=== PATIENT | male | born 1955 | race Caucasian/White ===

== ENCOUNTER 2018-06-11 17:07 | Emergency (ER) | payer OTHER ==
[~2018-06-11] VITALS: Ht 182.9 cm; Wt 105.2 kg
[~2018-06-11 17:07] MED LIST: ATORVASTATIN CA10 MG PO; GLIMEPIRIDE2 MG PO; METFORMIN HCL500 MG PO; SAW PALMETTO160 MG PO; SIMVASTATIN20 MG PO
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
--- OUTSIDE RECORDS SUMMARY | 2018-06-11 17:10 | XMS REPORT ---
Author Author [facility] Address Unknown Phone Unavailable Care Team Providers Care Reed Polisher Name Role Phone Alka MERCADO Unavailable Unavailable Problems This patient has no known problems. Allergies, Adverse Reactions, Alerts This patient has no known allergies or adverse reactions. Medications This patient has no known medications. Results Test Description Test Time Test Comments Text Results Atomic Results Result Comments CHEST SINGLE (PORTABLE) [place] [address] Patient Name: ENID ESCOBEDO MR #: [id number] : 1955 Age/Sex: 61/M Req #: [id number] Adm Physician: Ordered by: LYNNE MERCADO MD Report #: [id number] Location: ER Room/Bed: Procedure: [id number] DX/CHEST SINGLE (PORTABLE) Exam Date: 06/01/17 Exam Time: 1657 REPORT STATUS: Signed PROCEDURE: A single AP view of the chest. COMPARISON: None. INDICATIONS: CHEST PAIN, HEART FLUTTERS FINDINGS: Lines/tubes: None. Lungs: The lungs are well inflated and clear. There is no evidence of pneumonia or pulmonary edema. Pleura: There is no pleural effusion or pneumothorax. Heart and mediastinum: The heart and the mediastinum are unremarkable. Bones: No acute bony abnormality. Degenerative changes of the thoracic spine. IMPRESSION: No acute radiographic abnormality. Dictated by: Masoud Malin M.D. on 06/01/2017 at 17:17 Electronically approved by: Masoud Malin M.D. on 06/01/2017 at 17:17 Dictated By: MASOUD MALIN MD 16 Transcribed By: CASEY on 06/01/171716 COPY TO: LYNNE MERCADO MD
[2018-06-11] MEDS ORDERED: LIDOCAINE HCL 1% LOCAL INJ 20 ML VIAL INJ ONE (21:15)
[2018-06-11] MEDS ORDERED: DOXYCYCLINE HYCLATE TABLET 100 MG TAB PO ONE (22:00)
[2018-06-11 22:04] VITALS: BP 150/75
== END 2018-06-11 22:06 | disposition home or self-care (01) ==
LOC: ER 17:07
DX: L02.212 Cutaneous abscess of back [any part, except buttock and flank] (principal)
CPT/HCPCS: 10061; 99283; J2001

== ENCOUNTER → 2019-12-22 | Day surgery (SDC) | payer MEDICARE, OTHER ==
[2019-12-19 14:55] LABS: BASOPHILS # (AUTO) 0.1 (0.0-0.1); BASOPHILS % 0.6 % (0.0-1.0); EOSINOPHILS % 0.5 % (0.0-6.0); HEMATOCRIT 37.1 % (38.2-49.6); HEMOGLOBIN 12.7 g/dL (14.0-18.0); LYMPHOCYTES # (AUTO) 2.2 (1.0-3.2); LYMPHOCYTES % 27.9 % (18.0-39.1); MEAN CORPUSCULAR HEMOGLOBIN 28.9 pg (28-32); MEAN CORPUSCULAR HGB CONC 34.2 g/dL (31-35); MEAN CORPUSCULAR VOLUME 84.3 fL (81-99); MONOCYTES # (AUTO) 0.5 (0.2-0.8); MONOCYTES % 6.5 % (4.4-11.3); NEUTROPHILS # (AUTO) 5.1 (2.1-6.9); NEUTROPHILS % 63.9 % (38.7-80.0); PLATELET COUNT 221 x10e3/uL (140-360); RED CELL DISTRIBUTION WIDTH 12.5 % (11.7-14.4)
[~2019-12-22] MED LIST changes: +AMLODIPINE BESY10 MG PO; +CENTRUM SILVER1 EAC3 PO; +CRESTOR10 MG PO; +ESIDRIX25 MG PO; +LISINOPRIL10 MG PO; +MIDAZOLAM HCL 2 MG/2 ML VIAL ONE; +PROPOFOL IV EMULSION 10 MG/ML 20 ML VIAL ONE; +TRADJENTA5 MG PO
[2019-12-22 09:05] VITALS: BP 110/59
--- OUTSIDE RECORDS SUMMARY | 2019-12-22 10:33 | XMS REPORT ---
Author Author [facility] t Organization [facility] Address [facility] [place] [address] Phone Unavailable Care Team Providers Care Skin Diving Teacher Name Role Phone Asked, Pcp No PCP Unavailable Alka MERCADO Unavailable Problems This patient has no known problems. Allergies, Adverse Reactions, Alerts This patient has no known allergies or adverse reactions. Social History Social Habit Start Date Stop Date Quantity Comments Source Sex Assigned At [place] [facility] [place] Smoking Status Start Date Stop Date Source Former smoker 2017-08-18 00:00:00 2017-08-18 00:00:00 [place] Medications Ordered Medication Name Filled Medication Name Start Date Stop Da te Current Medication? Ordering Clinician Indication Dosage Frequency Signature (SIG) Comments Components Source metFORMIN (GLUCOPHAGE) 500 mg tablet 2017-08-18 23:19:10 Ye s 500mg Q.5D Take 500 mg by mouth 2 (two) times a day with meals. [place] glipiZIDE (GLUCOTROL) 10 MG tablet 2017-08-18 23:19:10 Yes 10mg Q.5D Take 10 mg by mouth 2 (two) times a day before meals. [place] Immunizations Ordered Immunization Name Filled Immunization Name Date Status Comments Source Tdap 2017-08-18 00:00:00 Completed [place] Procedures This patient has no known procedures. Plan of Care Planned Activity Planned Date Details Comments Source Future Scheduled Test 2020-03-03 00:00:00 INFLUENZA VACCINE [code = INFLUENZA VACCINE] [facility] Future Scheduled Test 2019-11-14 00:00:00 65+ PNEUMOCOCCAL V ACCINE (1 of 2 - PCV13) [code = 65+ PNEUMOCOCCAL VACCINE (1 of 2 - PCV13)] [facility] Future Scheduled Test 2004 00:00:00 COLONOSCOPY SCREEN ING [code = COLONOSCOPY SCREENING] [facility] Future Scheduled Test 2004 00:00:00 SHINGLES VACCINES (#1) [code = SHINGLES VACCINES (#1)] [place] Results Test Description Test Time Test Comments Results Result Comments Source CHEST SINGLE (PORTABLE) [place] [address] Patient Name: GUILLERMO TEE MR #: [id number] : 1955 Age/Sex: 61/M Req #: [id number] Adm Physician: Ordered by: LYNNE MERCADO MD Report #: [id number] Location: ER Room/Bed: Procedure: [id number] DX/CHEST SINGLE (PORTABLE) Exam Date: 06/01/17 Exam [...]
--- OUTSIDE RECORDS SUMMARY | 2019-12-22 10:33 | XMS REPORT | Clinical Summary ---
Author Author [facility] Address Unknown Phone Unavailable Care Team Providers Care Fire Fighting Equipment Specialist Name Role Phone Asked, No Pcp PCP Unavailable Allergies No Known Allergies Medications End Date Status Medication Sig Dispensed Refills Start Date Active metFORMIN (GLUCOPHAGE) Take 500 mg 0 500 mg tablet by mouth 2 (two) times a day with meals. Active glipiZIDE (GLUCOTROL) 10 Take 10 mg by 0 MG tablet mouth 2 (two) times a day before meals. Active Problems Not on file Immunizations Name Administration Dates Next Due Tdap 08/18/2017 Social History Date Tobacco Use Types Packs/Day Years Used Former Smoker Smokeless Tobacco: Never Used Sex Assigned at Date Recorded Not on file Industry Job Start Date Occupation Not on file Not on file Not on file Travel End Travel History Travel Start No recent travel history available. Last Filed Vital Signs Not on file Plan of Treatment Health Maintenance Due Date Last Done Comments COLONOSCOPY SCREENING 2004 SHINGLES VACCINES (#1) 2004 65+ PNEUMOCOCCAL VACCINE 11/14/2019 (1 of 2 - PCV13) INFLUENZA VACCINE 03/03/2020 Results Not on fileafter 12/21/2018 Insurance Type Payer Benefit Subscriber ID Effective Phone Address Plan / Dates Group Commercial COMMERCIAL MISC MISC xxxxxxxxxxxxxxx 2016-P COMMERCIAL resent Advance Directives For more information, please contact: [phone] Patient Licensed Optician Explanation Type Date Recorded Advance Directives, 08/18/2017 7:22 PM Living Will and Medical Power of Stave Machine Tender
== END | disposition home or self-care (01) ==
LOC: OR 06:02
PROVIDERS: ATTEND Internal Medicine Gastroenterology
DX: Z12.11 Encounter for screening for malignant neoplasm of colon (principal); K64.8 Other hemorrhoids; E11.9 Type 2 diabetes mellitus without complications; I10 Essential (primary) hypertension; Z01.810 Encounter for preprocedural cardiovascular examination; Z01.812 Encounter for preprocedural laboratory examination; Z11.59 Encounter for screening for other viral diseases; Z79.84 Long term (current) use of oral hypoglycemic drugs; Z87.891 Personal history of nicotine dependence
CPT/HCPCS: 36415 ×2; 82948; 85025; 87635; 93005; G0121; J2250; J2704; 45378

== ENCOUNTER → 2020-08-17 | Outpatient (CLI) | payer MEDICARE ==
[~2020-08-17] MED LIST changes: -MIDAZOLAM HCL 2 MG/2 ML VIAL ONE; -PROPOFOL IV EMULSION 10 MG/ML 20 ML VIAL ONE; +REGADENOSON 0.4 MG/5 ML SYR IV ONE
== END ==
LOC: RAD 10:46
PROVIDERS: ATTEND Internal Medicine Cardiovascular Disease
DX: R06.02 Shortness of breath (principal)
CPT/HCPCS: 78452; 93017; 93306; A9502; J2785